=== PATIENT | male | born 1975 | race Two or more races ===

== ENCOUNTER 2023-07-29 07:28 | Emergency (ER) | payer SELFPAY ==
[~2023-07-29] VITALS: Ht 160 cm; Wt 76.0 kg
[2023-07-29] MEDS ORDERED: PROMETHAZINE HCL 25 MG/ML 1ML IV ONE (08:15)
[2023-07-29] MEDS ORDERED: MORPHINE SULFATE 4 MG/ML SYR/VIAL IV ONE (08:15)
[2023-07-29] MEDS ORDERED: PANTOPRAZOLE 40 MG/10 ML VIAL INJ IV ONE (08:15)
[2023-07-29] MEDS ORDERED: SODIUM CHLORIDE 0.9% 1,000 ML IV ONE ×2 (08:15)
[2023-07-29 08:23] LABS: Base Excess -0.4 mmol/L (-2.0-2.0)
[2023-07-29 08:25] LABS: Eosinophils # (auto) 0.1 10 ^3/uL (0-0.8); Lymphocytes # (auto) 1.4 10 ^3/uL (0.4-5.4); Monocytes # (auto) 0.5 10 ^3/uL (0-1.3)
[2023-07-29 08:30] LABS: Basophils # (auto) 0.1 10 ^3/uL (0-0.2); Basophils % (auto) 0.6 % (0.0-2.0); Eosinophils % (auto) 0.8 % (0.0-7.0); Hematocrit 34.6 % (41.0-53.0); Hemoglobin 11.7 g/dL (13.5-17.5); Lymphocytes % (auto) 12.3 % (10.0-50.0); Mean Corpuscular Hemoglobin 32.4 pg (28.0-32.0); Mean Corpuscular Hgb Conc. 33.8 g/dL (32.0-36.0); Mean Corpuscular Volume 95.9 fL (80.0-100.0); Monocytes % (auto) 4.2 % (0.0-12.0); Neutrophils # (auto) 9.1 10 ^3/uL (1.6-8.6); Neutrophils % (auto) 82.1 % (37.0-80.0); Red Cell Distribution Width 12.7 % (11.8-14.3); White Blood Cell 11.1 10^3/uL (4.4-10.8)
[2023-07-29 08:37] LABS: Alanine Aminotransferase 24 U/L (7-40); Albumin 4.3 g/dL (3.2-4.8); Alkaline Phosphatase 95 U/L (46-116); Anion Gap 8 (5-15); Aspartate Aminotransferase 27 U/L (13-40); BUN/Creatinine Ratio 20.8 (10.0-20.0); Bilirubin, Total 0.4 mg/dL (0.2-1.0); Blood Urea Nitrogen 21 mg/dL (9-23); Calcium 9.3 mg/dL (8.5-10.1); Carbon Dioxide 29 mmol/L (20-30); Chloride 103 mmol/L (98-107); Glucose 91 mg/dL (74-106); Potassium 4.7 mmol/L (3.5-5.1); Sodium 140 mmol/L (136-145); Total Protein 6.7 g/dL (5.7-8.2)
[2023-07-29 08:43] LABS: Lipase 43 U/L (12-53)
[2023-07-29] MEDS ORDERED: PANT40TA2 PO (08:46)
[2023-07-29 09:49] VITALS: PULSE 70; RESP 17; O2SAT 100
[2023-07-29 12:00] VITALS: O2SAT 97
[2023-07-29 13:34] LABS: Urine Bacteria NONE SEEN /hpf (None Seen); Urine Blood Negative /uL (Negative); Urine Clarity Clear (Clear); Urine Hyaline Cast FEW /lpf (0 - 2); Urine Mucus FEW (None Seen); Urine Protein, UAD Negative (Negative); Urine Specific Gravity 1.017 (1.001-1.035); Urine Urobilinogen Normal (Negative); Urine WBC 1 /hpf (0 - 3)
[2023-07-29 13:39] LABS: Urine Color Straw (Yellow)
[2023-07-29 13:41] LABS: Amphetamine Screen, Urine Pos (NEGATIVE); Barbiturate Scree,Urine Neg (NEGATIVE); Benzodiazephine Screen, Urine Neg (NEGATIVE); Cocaine Screen, Urine Neg (NEGATIVE)
[2023-07-29 13:42] LABS: Cannabinoid Screen, Urine Neg (NEGATIVE); Opiate Scree,Urine Pos (NEGATIVE); Phencyclidine Screen, Urine Neg (NEGATIVE)
[2023-07-29 21:00] VITALS: BP 120/83; PULSE 87; RESP 18; TEMP 97.8
[2023-07-30] MEDS ORDERED: PANT40TA2 PO (12:05)
== END 2023-07-29 21:02 | disposition home or self-care (01) ==
LOC: ER 07:28 → EDBD 07:28 → ER 20:53
DX: K29.70 Gastritis, unspecified, without bleeding (principal); F15.90 Other stimulant use, unspecified, uncomplicated
CPT/HCPCS: 36415; 36600; 74176; 80053; 80307; 80320; 81001; 82805; 83605; 83690; 84484; 85025; 87040; 93005; 96361; 96374; 96375; 99285; C9113; J2270; J2550; J7030

== ENCOUNTER 2023-07-30 11:11 | Emergency (ER) | payer SELFPAY ==
[~2023-07-30] VITALS: Ht 160 cm; Wt 63.4 kg
[~2023-07-30 11:11] MED LIST: PANT40TA2 PO
[2023-07-30] MEDS ORDERED: PANT40TA2 PO (12:05)
[2023-07-30] MEDS ORDERED: DONNATAL 5ml ORAL Elix (BELLADONNA ALK-PHENOBARB) PO ONE (12:15)
[2023-07-30] MEDS ORDERED: LIDOCAINE VISCOUS 2% 15ML UD PO ONE (12:15)
[2023-07-30] MEDS ORDERED: MAALOX PLUS or MAALOX 30 ML PO ONE (12:15)
[2023-07-30 12:37] VITALS: BP 138/94; PULSE 86; RESP 18; TEMP 97.4; O2SAT 100
== END 2023-07-30 12:38 | disposition home or self-care (01) ==
LOC: ER 11:11
DX: K29.70 Gastritis, unspecified, without bleeding (principal)